=== PATIENT | female | born 1955 | race Caucasian/White ===

== ENCOUNTER 2020-06-04 10:06 | Emergency (ER) | payer MEDICARE, SELFPAY ==
[2020-06-04 10:13] VITALS: BP 167/84; PULSE 97; RESP 17; TEMP 37.2; O2SAT 99; BMI 33.0
--- NOTE | 2020-06-04 10:15 | XR_ITS ---
EXAMINATION: XR HAND, LEFT CLINICAL INFORMATION: Question dislocated left ring finger COMPARISON: None TECHNIQUE: PA, lateral, and oblique views of the left hand. FINDINGS: There is medial dorsal dislocation at the proximal interphalangeal joint of the ring finger. No fracture seen. There is severe osteoarthritis of the first carpometacarpal joint. Mild osteoarthritis seen at the remaining interphalangeal joints. Diffuse osteopenia. Intercarpal joint spaces are maintained. XR/XR hand LT min 3V IMPRESSION: Medial dorsal dislocation at the proximal interphalangeal joint of the ring finger.
--- NOTE | 2020-06-04 11:00 | ED.EXTPRO ---
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 Reports was kneeling down on ground and lost balance, catching self with left hand, unsure if hit hand against wall/got caught between doors. Reports mild pain and tingling now. Denies injury to other area, head trauma, LOC <SAM Navas - Last Filed: 06/04/20 13:25> MD Complaint: extremity pain and joint paint <SAM Navas - Last Filed: 06/04/20 13:25> Related Data Home medications: Previous Rx's Medication Instructions Recorded ibuprofen 600 mg PO Q8H PRN #20 tab 06/04/20 <SAM Navas - Last Filed: 06/04/20 13:25> Allergies/Adverse reactions: Allergies Allergy/AdvReac Type Severity Reaction Status Date / Time No Known Allergies Allergy Verified 06/04/20 10:15 <SAM Navas - Last Filed: 06/04/20 13:25> Review of Systems Review of Systems: Constitutional: No Fever, No Chills Musculoskeletal: + joint pain, No Myalgias, No Joint Swelling Skin: No Skin Lesions, No rash Neuro: No Weakness, + tingling, No Paresthesias <SAM Navas Last Filed: 06/04/20 13:25> Yes all other systems are reviewed and are negative <SAM Navas Last Filed: 06/04/20 13:25> [facility] Past Medical History Attestation statement: The following information was validated with the patient. <SAM Navas - Last Filed: 06/04/20 13:25> Medical History: Medical History (Updated 06/05/20 @ 00:21 by Pepper Romero) High blood pressure <SAM Navas - Last Filed: 06/04/20 13:25> Physical Exam Vital Signs: Vital Signs: Last Vital Signs Temp 98.9 F 06/04/20 10:13 Pulse 97 06/04/20 10:13 Resp 17 06/04/20 10:13 BP 167/84 H 06/04/20 10:13 Pulse Ox 99 06/04/20 10:13 Body Mass Index 33.0 <SAM Navas - Last Filed: 06/04/20 13:25> Vital Signs: Last Vital Signs Temp 98.9 F 06/04/20 10:13 Pulse 97 06/04/20 10:13 Resp 17 06/04/20 10:13 BP 167/84 H 06/04/20 10:13 Pulse Ox 99 06/04/20 10:13 Body Mass Index 33.0 <Elmer Singh MD - Last Filed: 06/07/20 01:56> Const: General: cooperative and healthy appearing <SAM Navas - Last Filed: 06/04/20 13:25> Orientation/consciousness: patient oriented x3 <SAM Navas - Last Filed: 06/04/20 13:25> Limitations: no limitations <SAM Navas - Last Filed: 06/04/20 13:25> HENMT: Head: Yes normal to inspection <SAM Navas - Last Filed: 06/04/20 13:25> Ears: hearing grossly normal bilaterally <SAM Navas - Last Filed: 06/04/20 13:25> General nose exam: Normal external nose present <SAM Navas - Last Filed: 06/04/20 13:25> Face and sinus: Yes normal facial exam <SAM Navas - Last Filed: 06/04/20 13:25> Eyes: General: appearance normal, both eyes and all related structures <SAM Navas - Last Filed: 06/04/20 13:25> EOM: EOMs intact bilaterally <SAM Navas - Last Filed: 06/04/20 13:25> Neck: Neck: Yes normal visual inspection <SAM Navas - Last Filed: 06/04/20 13:25> Resp: Effort & Inspection: normal respiratory effort <SAM Navas - Last Filed: 06/04/20 13:25> Cardio: Rate: regular rate <SAM Navas - Last Filed: 06/04/20 13:25> Peripheral pulses: radial pulses present <SAM Navas - Last Filed: 06/04/20 13:25> Skin: Rashes: no rashes <SAM Navas - Last Filed: 06/04/20 13:25> Wounds: no wounds <SAM Navas - Last Filed: 06/04/20 13:25> Neuro: General: patient oriented x3 <SAM Navas - Last Filed: 06/04/20 13:25> Gait exam (Neuro): Normal gait present <SAM Navas - Last Filed: 06/04/20 13:25> Extrem: Other: Left ring finger with notable deformity of the PIP (medially dislocated) with mild swelling. <SAM Navas - Last Filed: 06/04/20 13:25> Course Course Course Narrative: -x-ray showing medially dorsal dislocation of the proximal interphalangeal joint of the ring finger >> reduction formed at bedside -postreduction films showing ring finger reduced. Also acute minimally displaced oblique fracture through the volar base of the 3rd middle phalanx >> need to get rings off ring finger and fear of vascular compromise > lube and ice failed, ring cutter was used to successfully remove rings -patient was placed in double finger splint in the ED to follow-up with hand surgery <SAM Navas - Last Filed: 06/04/20 13:25> I have discussed the case and management with the VAN <Elmer Singh MD - Last Filed: 06/07/20 01:56> Procedures Orthopedic Joint Reduction Joint #1: Side: left <SAM Navas - Last Filed: 06/04/20 13:25> Joint Reduction Location: finger <SAM Navas - Last Filed: 06/04/20 13:25> Analgesia: none <SAM Navas Last Filed: 06/04/20 13:25> Technique used: traction/counter-traction and direct manipulation <SAM Navas - Last Filed: 06/04/20 13:25> Post-reduction neuro exam: intact and no change <SAM Navas - Last Filed: 06/04/20 13:25> Post-reduction vascular: intact and no change <SAM Navas - Last Filed: 06/04/20 13:25> Post Reduction X-Ray Obtained: Yes <SAM Navas - Last Filed: 06/04/20 13:25> Post Reduction X-Ray Results: reduced <SAM Navas - Last Filed: 06/04/20 13:25> Splint Applied: Yes <SAM Navas Last Filed: 06/04/20 13:25> Patient Tolerated Procedure: well <SAM Navas - Last Filed: 06/04/20 13:25> MDM - Extremity (Nontraumatic) MDM Narrative Medical decision making narrative: Concern for dislocation versus fracture <SAM Navas Last Filed: 06/04/20 13:25> Discharge Plan Discharge Clinical Impression: Dislocation of finger, Fracture of finger <SAM Navas Last Filed: 06/04/20 13:25> Patient Disposition: Home, Self-Care <SAM Navas Last Filed: 06/04/20 13:25> Instructions: Finger Dislocation (ED) <SAM Navas Last Filed: 06/04/20 13:25> Additional Instructions: Your finger was dislocated today in the ED You also have a broken middle finger It was successfully put back into place You need to wear finger splint at all times until you see the claim processing specialist, you may reapply tape at home as needed If finger becomes increasingly swollen, discolored, numb, or your unable to move it return to the ED Take Tylenol and Motrin at home for pain/swelling Ice your finger <SAM Navas Last Filed: 06/04/20 13:25> Prescriptions: New ibuprofen 600 mg tablet 600 mg PO Q8H PRN (Reason: fever or pain) Qty: 20 RF: 0 <SAM Navas - Last Filed: 06/04/20 13:25> Referrals: Zuleima Roper MD [Physician] - 1 week <SAM Navas - Last Filed: 06/04/20 13:25> Interventions: ED Discharge Assessment Last Done: 06/04/20 13:27 <SAM Navas - Last Filed: 06/04/20 13:25> Discharge Date/Time: 06/04/20 13:28 <SAM Navas - Last Filed: 06/04/20 13:25>
--- NOTE | 2020-06-04 11:06 | XR_ITS ---
EXAMINATION: XR HAND, LEFT CLINICAL INFORMATION: Post reduction COMPARISON: None TECHNIQUE: PA and lateral views of the left hand. FINDINGS: Previously seen dislocation at the proximal interphalangeal joint of the ring finger has been reduced. No fracture of the fourth digit seen. However, there is oblique lucency through the volar base of the third middle phalanx (middle finger) consistent with an acute fracture. There is multifocal interphalangeal degenerative arthrosis with joint space narrowing and osteophytosis involving the distal interphalangeal joints of the second through fifth fingers. Severe osteoarthritis of the first carpometacarpal joint are seen. XR/XR hand LT 2V IMPRESSION: Previously seen dislocation at the proximal interphalangeal joint of the ring finger has been reduced. Also seen is an acute minimally displaced oblique fracture through the volar base of the third middle phalanx with extension to the proximal interphalangeal joint. Recommend correlation with point tenderness in this location on the middle finger.
--- NOTE | 2020-06-04 13:03 | PC.NURSE ---
2 RINGS CUT OFF WITH RING CUTTER AND SECOND NURSE TO ASSIST. PT TOLERATED PROCEDURE WELL.
== END 2020-06-04 13:28 | disposition home or self-care (01) ==
PROVIDERS: Emergency Provider Emergency Medicine; PCP Internal Medicine
DX: S62.603A Fracture of unspecified phalanx of left middle finger, initial encounter for closed fracture (principal); M79.642 Pain in left hand; W01.0XXA Fall on same level from slipping, tripping and stumbling without subsequent striking against object, initial encounter; Y93.9 Activity, unspecified; Y92.9 Unspecified place or not applicable; Y99.9 Unspecified external cause status
CPT/HCPCS: 73120; 73130; 99283

== ENCOUNTER → 2020-06-12 09:06 | Outpatient (BNVA) | payer MEDICARE, SELFPAY | PROVIDERS: Visit Provider Orthopaedic Surgery | DX: Z76.89 Persons encountering health services in other specified circumstances (principal) | CPT/HCPCS: 99202 ==

== ENCOUNTER 2023-06-29 18:14 | Emergency (ER) | payer MEDICARE, SELFPAY ==
[2023-06-29 18:24] VITALS: BP 126/54; PULSE 93; RESP 14; TEMP 36.4; O2SAT 98; BMI 33.2
--- NOTE | 2023-06-29 18:27 | ED.GENADULT ---
HPI - General Adult General Chief complaint: Head Injury Stated complaint: BANGED HEAD ON CABINET DOOR Time Seen by Provider: 06/29/23 22:06 Source: patient Mode of arrival: ambulatory Limitations: no limitations History of Present Illness HPI narrative: Patient is a 68-year-old who presents emergency department for evaluation of a laceration to the right parietal region of her head. She states that she was standing up on a step stool when she accidentally struck her head on the corner of a cabinet above her. There was no loss of consciousness. She denies any pain. No active bleeding. Denies use of anticoagulants. Denies dizziness, lightheadedness, neck pain, numbness or tingling of the extremities. Unaware of the date of her last tetanus vaccination. Related Data Home Medications Medication Instructions Recorded Confirmed lisinopril 10 1 tab PO DAILY 06/12/20 mg-hydrochlorothiazide 12.5 mg tablet metformin 500 mg tablet 500 mg PO DAILY 06/12/20 Previous Rx's Medication Instructions Recorded ibuprofen 600 mg tablet 600 mg PO Q8H PRN fever or pain 06/04/20 #20 tabs Allergies Allergy/AdvReac Type Severity Reaction Status Date / Time No Known Allergies Allergy Verified 12/06/20 15:15 Review of Systems Review of Systems: Yes all other systems are reviewed and are negative PMFSH Past Medical History Attestation statement: The following information was validated with the patient. Source: old records reviewed Medical History Prediabetes High blood pressure Surgical History History of repair of rotator cuff Previous back surgery History of appendectomy Physical Exam ED Vital Signs: Vital Signs - 24 hr 06/29/23 18:24 Temperature 97.6 F Pulse Rate 93 Respiratory Rate 14 Blood Pressure 126/54 L Pulse Oximetry 98 Oxygen Delivery Method Room Air BMI result Body Mass Index 33.2 Appearance: Alert.?Oriented to person, place and time. No acute distress.?Normal affect. Head: Normocephalic. 5 cm linear laceration to the right parietal scalp Eyes: Pupils equal, round and reactive to light.? EOMI. No nystagmus. ENT: Pharynx normal.??Dentition normal. Neck: Normal inspection.? Neck supple.??Full range of motion. No midline cervical spine tenderness, step-offs, deformities. CVS: Heart sounds normal. Normal heart rate and rhythm.? Pulses normal.?? Respiratory: No respiratory distress.? Lung sounds clear to auscultation bilaterally??? Skin: Skin warm and dry.? Normal skin color.? Laceration as noted above Extremities: No lower extremity edema.? Neuro: Moves all extremities spontaneously. Sensation intact bilaterally. CN II-XII intact. No focal neuro deficits. Ambulates with normal steady gait. Course Course Course Narrative: This is a rapid medical exam: Additional HPI, ROS, PE not included below will be deferred to primary provider. Patient is a 68-year-old female presenting to the ED with complaint of laceration to top of head. STates she stood up and hit head on cabinet above her. Denies loss of consciousness, denies headache. Bleeding controlled in triage, laceration noted. Unsure last tdap. Plan: tdap, will need kaylin Procedures Laceration Laceration 1: Site: scalp Side (If applicable): right Size (cm): 5 Description: linear Depth: simple, single layer Pre-repair: irrigated extensively and deep structures intact Skin layer closed with: other (5 kaylin) Medical Decision Making Medical Decision Making MDM Narrative: Patient is a 68 female who presents emergency department for evaluation of a laceration to the scalp as per HPI. She has no focal neurological deficits upon examination. She is not anticoagulated. Low mechanism injury, low suspicion for ICH/SDH, no focal neurological deficits upon examination, would defer head CT at this time. She is not anticoagulated. There is no profuse active bleeding. Area was cleansed with saline. Repaired with 6 kaylin patient tolerated procedure well. Advised removal in 7-10 days. Discussed worrisome signs and symptoms that would warrant re-evaluation emergency department. All questions answered. Stable for discharge. Differential Diagnosis Differential Diagnoses: The differential diagnosis associated with the presentation includes (As noted above) Admission/Observation Consideration of admission/observation: Escalation of care including admission/observation considered (As noted above) Independent Historian Clinical information obtained from an independent historian. History obtained from or confirmed by: Spouse (Present who confirms history) External Record Review External record reviewed: Outpatient record Tests considered The following testing was considered but not selected: As noted above Prescription Management I considered prescription management with: Pain Medication (Acetaminophen) Discharge Plan Discharge Clinical Impression: Acute head injury without loss of consciousness, Laceration of scalp Patient Disposition: Home, Self-Care Instructions: Head Injury (ED), Laceration (ED) Additional Instructions: You can take ibuprofen 200 mg, 3 tablets (600mg) every 6-8 hours as needed for pain, in addition to Tylenol 500 mg, 2 tablets (1,000mg) every 4-6 hours as needed for pain, but not to exceed 3 doses daily (3,000mg).? [place] will need to be removed in 7-10 days. You may see with your primary care provider regarding removal and/or return back to the emergency department for removal. Return back to emergency department any new or worsening symptoms or concerns. Prescriptions: No Action ibuprofen 600 mg tablet 600 mg PO Q8H PRN (Reason: fever or pain) Qty: 20 0RF Referrals: Terrence Almanza MD [Primary Care Provider] -
[2023-06-29 23:00] VITALS: BP 120/61; PULSE 79; RESP 18; O2SAT 97
[2023-06-29] MEDS: Diphth,Pertus(ACell),Tet Adult 0.5 ML SYRINGE IM (23:02)
== END 2023-06-29 23:10 | disposition home or self-care (01) ==
PROVIDERS: Emergency Provider Student in an Organized Health Care Education/Training Program; PCP Internal Medicine
DX: S00.01XA Abrasion of scalp, initial encounter (principal); S09.90XA Unspecified injury of head, initial encounter; Y29.XXXA Contact with blunt object, undetermined intent, initial encounter; Y93.9 Activity, unspecified; Y92.9 Unspecified place or not applicable; Y99.9 Unspecified external cause status; Z23 Encounter for immunization
CPT/HCPCS: 12002; 90471; 90715; 99284

== ENCOUNTER 2025-03-20 14:29 | Outpatient (AMB) | payer MEDICARE, SELFPAY ==
--- NOTE | 2025-03-20 14:36 | MHC.OFFWIV ---
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 notes 11 pound wt loss in 1 week. Allergies No Known Allergies Allergy (Verified 03/20/25 14:38) Do you need a note to return to daycare/school/sports/work: No HPI HPI Comments History of Present Illness Details This is a 69-year-old female with a past medical history of [id number] diabetes and hypertension presenting for evaluation of feeling off for the past 2 days. Patient states she recently tested positive for ?an autoimmune disease? and started a new diet 1 week ago that consists of increase protein and vegetables and no carbohydrates. Patient reports an 11 lb weight loss since starting this diet 1 week ago. Patient states that she is urinating more frequently in large amounts since starting her diet. Patient denies taking any new medications and she denies having any fevers, chills, abdominal pain, dysuria, lightheadedness, chest pain or shortness for breath. Patient states that she comes to the walk-in today because she was feeling shaky and anxious. Upon intake the patient was noted to be tachycardic at 120bp with a blood pressure of 102/70. [facility] Medical History Prediabetes High blood pressure Surgical History History of repair of rotator cuff Previous back surgery History of appendectomy Social History (System 12/06/20 @ 15:15 by Tracey Kate) Alcohol intake: never Review of Systems Const All systems reviewed & are unremarkable except as noted in HPI and below Denies body aches, Denies chills, Denies fatigue, Denies fever(s), Denies frequent falls, Denies headache(s), Reports weakness and Reports weight loss Eyes Reports no additional complaints ENT Reports no additional complaints, Denies vertigo, Denies dizziness and Denies headache(s) Card Reports no additional complaints, Denies chest pain and Denies syncope Resp Reports no additional complaints GI Reports no additional complaints Reports nocturia, Denies dysuria, Denies flank pain, Denies urinary incontinence and Reports urinary urgency Musc Reports no additional complaints Skin/Breast Reports system reviewed and no additional complaints, except as documented Neuro Reports no additional complaints, Denies confusion, Denies vertigo, Denies dizziness, Denies syncope, Denies frequent falls, Denies headache(s) and Reports weakness Psych Reports no additional complaints and Denies confusion Endo Reports no additional complaints and Denies fatigue Physical Exam Vital Signs: Last Vital Signs Temp 97.9 F 03/20/25 14:37 Pulse 120 H 03/20/25 14:37 BP 102/70 03/20/25 14:37 Pulse Ox 96 03/20/25 14:37 Oxygen Delivery Method Room Air 03/20/25 14:37 BMI result Body Mass Index 30.4 Repeat heart rate is 104, sitting blood pressure 118/76, standing blood pressure 102/72, blood glucose 120 Const General: cooperative, healthy appearing, comfortable, no acute distress, well developed, alert, awake and Physically active; No acute distress, confusion, ill appearing, lethargic or tired appearing Nutritional Appearance: well nourished Orientation/consciousness: patient oriented x3, No confusion and No lethargic Limitations: no limitations Resp Effort & Inspection: normal respiratory effort, able to speak in complete sentences, not labored, no nasal flaring and not tachypneic Auscultation: clear to auscultation bilaterally Cardio Rate: tachycardic Rhythm: regular rhythm Heart sounds: S1 normal heart sound present and S2 normal heart sound present Peripheral pulses: radial pulses present on the right 2+ General: Yes Bimanual renal exam normal bilaterally, Yes bladder normal to palpation and Yes no CVA tenderness Bimanual exam- vagina & uterus: bladder normal to palpation Back/Spine/Pelvis Back: no CVA tenderness Skin General skin exam: no rashes or lesions noted Neuro General: patient oriented x3, CN's II-XI intact bilaterally and No confusion Cognition (Neuro): normal cognition Gait exam (Neuro): Normal gait present Psych Appearance: grossly normal Mental Status: mental status grossly normal Insight: Good insight present (Psych) Judgement: Good judgement present (Psych) Results AMB Random Glucose (hemocue) AMB Random Glucose (hemocue) 120 mg/dL Last Edit by Adriana Fletcher MA on 03/20/25 15:33 Results Reviewed Results Reviewed: Blood glucose 120; patient is not dizzy or unsteady when checking orthostatic blood pressure Assessment & Plan Assessment & Plan (1) Tachycardia: Comment: Patient is tachycardic with a rate of 104 beats per minute. Rhythm is regular. Patient is in no acute distress and is not tachypneic or hypoxic. Patient states she is urinating significantly more frequently but denies any hematuria or dysuria. Patient's systolic blood pressure drops 16 points from sitting to standing but she is asymptomatic. Overall, patient is well-appearing and her is present throughout. Code(s): R00.0 - Tachycardia, unspecified Plan: Patient will increase her water intake daily to at least five 24 ounce bottles of water daily; she will check her blood pressure twice daily and record the value and the time of day. She will call her PCP tomorrow to update him (Dr. Almanza) of her current status. Patient denies dysuria and therefore a urinalysis is not collected at this time. Patient and her are in agreement with this plan of care. Orders: Orders AMB Random Glucose (hemocue) Today Z13.9 - Encounter for screening, unspecified Coding Level of Care Code New Pt Level 4 (00247) Diagnoses Tachycardia R00.0 Time Spent (min) 25
[2025-03-20 14:37] VITALS: BP 102/70; PULSE 120; TEMP 36.6; O2SAT 96; BMI 30.4
--- OUTSIDE RECORDS SUMMARY | 2025-03-20 15:28 | XMS_ITS | Encounter Summary ---
Author Organization [facility] Address [address] [place] [address] Phone Care Team Providers Care Third Officer Name Role Phone Terrence Almanza MD Primary Care Provider Terrence Almanza MD Unavailable [phone] Tawana Li ROPE WALKER Unavailable [phone] Terrence Almanza MD Primary Care Provider [phone] Terrence Almanza MD Unavailable [phone] Terrence Almanza MD Primary Care Provider [phone] Archie Dent MD Unavailable Terrence Almanza MD Unavailable [phone] Amie Hurt RN Unavailable [phone] Encounter Details Date Type Department Care Team (Latest Contact Info) Description 05/27/2017 Transcribe Orders [facility] [address] [place] [address] Terrence Almanza MD [address] [place], [place] [phone] Type 2 diabetes mellitus without complication, unspecified intermodal customer service insulin use status (Primary Dx) Social History Tobacco Use Types Packs/Day Years Used Date Smoking Tobacco: Never Assessed Comments Unknown Sex and Gender Information Value Date Recorded Sex Assigned at Female 10/22/2020 1:39 PM EDT Legal Sex Female 9:56 PM EDT Gender Identity Female 10/22/2020 1:39 PM EDT Sexual Orientation Straight 10/22/2020 1: 39 PM EDT documented as of this encounter Plan of Treatment Upcoming Encounters Date Type Department Care Team (Late st Contact Info) Description 03/20/2025 4:45 PM EDT Office Visit [facility] Internal Medicine [address] [place] [address] Bairon Nails MD [address] [place] [address] 04/30/2025 11:30 AM EDT Office Visit [facility] Internal Medicine [address] [place], [place] [phone] Terrence Amlanza MD [address] [place] [address] 01/04/2026 8:30 AM EDT Office Visit [facility] Internal Medicine [address] [place], [place] [phone] Terrence Almanza MD [address] [place], [place] [phone] documented as of this encounter Results * (ABNORMAL) Comprehensive metabolic panel (05/27/2017 8:44 PM EDT) SODIUM 140 133 - 146 mmol/L [facility] POTASSIUM 5.4(H) 3.3 - 5.1 mmol/L [facility] CHLORIDE 101 96 - 108 mmol/L [facility] CO2 29 21 - 35 mmol/L [facility] BUN 15 6 - 19 mg/dL [facility] CREATININE 0.60 0.5 - 1.5 mg/dL [facility] GLUCOSE 91 70 - 99 mg/dL [facility] ALBUMIN 4.6 3.9 - 4.8 g/dL [facility] TOTAL PROTEIN 6.9 6.5 - 8.0 g/dL [facility] CALCIUM 10.2 8.4 - 10.3 mg/dL [facility] ALKALINE PHOSPHATASE 62 39 - 117 U/L [facility] TOTAL BILIRUBIN 0.5 0 - 1.2 mg/dL [facility] AST 18 0 - 37 U/L [facility] ALT 24 0 - 40 U/L [facility] GLOBULIN 2.3 1 - 4.8 g/dL [facility] EGFR >60 >60 mL/min/1.7 3m2 [facility] Comment:Abnormal if <60. If patient is -Northern Irish, multiply the result by 1.21. ANION GAP 15 10 - 20 mmol/L [facility] Blood 05/27/2017 8:44 PM EDT 05/27/2017 9:03 PM EDT us Terrence Almanza MD LAB BLOOD ORDERABLES Final Re sult Performing Organization Address City/State/[facility] Co de Phone Number [address] [address] * CBC (05/27/2017 8:44 PM EDT) WBC 5.77 3.40 - 11.20 K/uL [facility] RBC 4.71 3.80 - 4.80 M/uL [facility] HGB 14.1 12.0 - 15.0 g/dL [facility] HCT 43.3 36.0 - 46.0 % [facility] PLT 273 130 - 400 K/uL [facility] MCV 91.9 79.0 - 98.0 [facility] MCH 29.9 27.0 - 34.8 pg [facility] MCHC 32.6 31.5 - 36.0 g/dL [facility] RDW 13.7 10.8 - 14.6 % [facility] MPV 9.9 9.4 - 12.4 [facility] NRBC 0.00 /100 WBCs [facility] ABSOLUTE NRBC 0.00 K/uL [facility] Blood 05/27/2017 8:44 PM EDT 05/27/2017 9:03 PM EDT us Terrence Almanza MD LAB BLOOD ORDERABLES Final Re sult Performing Organization Address [facility]/ZIP Co de Phone Number [address] [address] * Sedimentation rate (ESR) (05/27/2017 8:44 PM EDT) ESR 3 0 - 30 mm/h [facility] Blood 05/27/2017 8:44 PM EDT 05/27/2017 9:03 PM EDT us Terrence Almanza MD LAB BLOOD ORDERABLES Final Re sult Performing Organization Address [facility] Co de Phone Number [address] [address] * C-Reactive Protein (05/27/2017 8:44 PM EDT) C REACTIVE PROTEIN 0.3 0 - 0.5 mg/L [facility] Blood 05/27/2017 8:44 PM EDT 05/27/2017 9:03 PM EDT us Terrence Almanza MD LAB BLOOD ORDERABLES Final Re sult Performing Organization Address [facility] Co de Phone Number [address] [address] * (ABNORMAL) Lipid panel (05/27/2017 8:44 PM EDT) HDL 67 mg/dL [facility] Comment: Interpretation: Risk Level Females Decreased >55mg/dL Average 50-55 mg/dL Increased <50 mg/dL CHOLESTEROL 247(H) 0 - 240 mg/dL [facility] TRIGLYCERIDES 128 30 - 160 mg/dL [facility] LDL 154(H) 50 - 129 mg/dL [facility] Comment: LDL levels in terms of risk for coronary heart disease: <100 mg/dL: Optimal 100-129 mg/dL: Near or above optimal 130-159 mg/dL: Borderline high 160-189 mg/dL: High >190 mg/dL: Very High CARDIAC RISK RATIO 3.7 3.3 - 4.4 [facility] Blood 05/27/2017 8:44 PM EDT 05/27/2017 9:03 PM EDT us Terrence Almanza MD LAB BLOOD ORDERABLES Final Re sult [address] [address] documented in this encounter Visit Diagnoses Diagnosis Type 2 diabetes mellitus without complication, unspecified retirement insulin use status- Primary documented in this encounter Additional Health Concerns Assessment Noted Time PHQ-2 Depression Total Score: 0 05/27/20 17 12:11 PM EDT documented as of this encounter Care Teams Third Officer Relationship Specialty Start Date End Date Terrence Almanza MD [address] [place] [address] PCP - General 05/11/17 06/08/17 Terrence Almanza MD [address] [place] [address] PCP - General Internal Medicine 06/09/17 12/11/18 Terrence Almanza MD [address] [place] [address] PCP - General Internal Medicine 12/12/18 Terrence Almanza MD [address] [place] [address] Historical LMR Provider 05/16/17 Tawana Li ROPE WALKER [address] [place] [address] 6 [place] [address] Historical LMR Provider 05/16/17 08/02/21 Terrence Almanza MD [address] [place] [address] Insurance Assigned Provider 11/02/20 08/01/22 Archie Dent MD [address] [place] [address] [place] [address] Ophthalmology 08/08/19 Terrence Almanza MD [address] [place] [phone] Insurance Assigned Provider 10/30/23 Amie Hurt, RN [address] [place] [address] [email or web address] 02/21/24 03/15/24 documented as of this encounter Additional Source Comments The information contained in this document represents components of the legal health record. It is not the complete legal health record.[facility]
--- OUTSIDE RECORDS SUMMARY | 2025-03-20 15:29 | XMS_ITS | Encounter Summary ---
Author Organization [facility] Address [facility] [place] [facility] [address] [place] [address] Phone Care Team Providers Care Sleeve Setter Name Role Phone Terrence Almanza MD Unavailable [phone] Terrence Almanza MD Primary Care Provider [phone] Archie Dent MD Unavailable [phone] Terrence Almanza MD Unavailable [phone] Reason for Visit * Reason Onset Date Comments concerns with vision 03/20/2025 Encounter Details Date Type Department Care Team (Late st Contact Info) Description 03/20/2025 Telephone [facility] Internal Medicine [address] [place], [place] [phone] Terrence Almanza MD [address] [place] [address] [email or web address] concerns with vision Social History Tobacco Use Types Packs/Day Years Used Date Smoking Tobacco: Former Cigarettes 0 5 1 978 - 1982 Smokeless Tobacco: Never Comments:social smoker while drinking Alcohol Use Standard Drinks/Week Comments Yes 0 (1 standard drink = 0.6 oz pure alcohol) 2 drinks, once every 2-3 months only during special occasions;10 drinks per year Child or Family Care Answer Date Record ed Do you have problems with on e of the following making it difficult for you to work, study, or receive health care? No 01/05/2025 Education Answer Date Recorded Are you interested in more education? Not on addi e 11/20/2022 Are you concerned about learning? Not on file 11/20/2022 No 11/20/2022 No 11/20/2022 Food Answer Date Recorded Within the past 6 months we worried whether our food would run out before we got money to buy more. Never True 01/05/2025 Within the past 6 months the food we bought just didn't last and we didn't have enough money to get more. Never True Residential Stability Answer Date Recor ded What is your housing situation today? I have stefan sing 01/05/2025 How many times have you move d in the past 12 months? Zero (I did not move) 01/05/2025 Paying for Meds Answer Date Recorded Do you have trouble paying for medicines? No 01/05/2025 Paying Utility Bills Answer Date Record ed Do you have trouble paying your heating or elect ricity bill? No 01/05/2025 Transportation Answer Date Recorded Has the lack of transportati on kept you from medical appointments or from getting medications? No 01/05/2025 Digital Access Answer Date Recorded No 01/05/2025 Yes 01/05/2025 Do you have reliable internet access at home? Ye s 01/05/2025 Do you have a device (e.g., phone, tablet, computer) with a working camera? Yes 01/05/2025 Intimate Partner Violence Answer Date R ecorded Denied Basic Needs Not on file 01/05/2025 In the past 12 months have y ou been in a relationship with a person who hurts, threatens, or tries to control you? No 01/05/2025 Worried food would run out Not on file 01/05 In the past 12 months have y ou been in a relationship with a person who hurts, threatens, or tries to control you? No 01/05/2025 Comments No Sex and Gender Information Value Date Recorded Sex Assigned at Female 10/22/2020 1:39 PM EDT Legal Sex Female 9:56 PM EDT Gender Identity Female 10/22/2020 1:39 PM EDT Sexual Orientation Straight 10/22/2020 1: 39 PM EDT documented as of this encounter Progress Notes * Jillian Mendiola RN - 03/20/2025 3:02 PM EDT Noted * Lima Weaver - 03/20/2025 2:53 PM EDT Received call from patients spouse Keagan reports he will not be attending the appointment for today.Reports he brought her to the [facility] in [place] office now to be seen. * Jillian Mendiola RN - 03/20/2025 1:33 PM EDT Spoke to Latonia and rescheduled to 4:[address] Nails. * Jillian Mendiola RN - 03/20/2025 1:17 PM EDT Spoke to Latonia johnson. Scheduled with Jared tomorrow at 4 pm. Will call her back if there is a cancellation this afternoon. * Jillian Mendiola RN - 03/20/2025 1:13 PM EDT Images from the original note were not included. Ernie Appiah PA-C g P[facility] Amanda RnJust now (1:12 PM) JM I would advise her to have some carbohydrates as I feel as though is that her sugar is most likely dropping which is causing some of the symptoms. She should be seen if she develops further symptoms she should go to the emergency department for further evaluation. I would recommend her having a sick visit and being seen by Jared at 4:00 * Jillian Mendiola RN - 03/20/2025 1:05 PM EDT Images from the original note were not included. Ernie Appiah PA-C [facility] Amanda Rn1 minute ago (1:03 PM) JM She should really be seen and not just have labs completed so then that way we can do a glucose level in the office. * Jillian Mendiola RN - 03/20/2025 12:54 PM EDT Spoke to Latonia and she states this started about an hour ago. She had a shake this morning with almond butter, milk and strawberries. States she is on a detox regimen due to an autoimmune disorder. She has lost 11 pounds in the past week and started this diet about that time. States she is eating fruits veggies and grass fed meat. She is diabetic but does not have a glucometer. She takes metformin. She is concerned that her blood sugar may be off due to her new diet, weight loss and metformin.Can labs be ordered so she can come to the lab today? States the weird feeling has passed and she denies and visual problems. * Lima Weaver - 03/20/2025 12:49 PM EDT Received a call from the patient reporting that she does not feel right. She states she is not currently shaky but feels as though she could become shaky. She also reports that her eyes ???just don???t feel right,?? although she is able to see clearly. Patient did not provide further detail but expressed concern about these symptoms. She reports she is worried it could be her blood sugar. She can be reached at [phone]. documented in this encounter Plan of Treatment Upcoming Encounters Date Type Department Care Team (Late st Contact Info) Description 03/20/2025 4:45 PM EDT Office Visit [facility] Internal Medicine [address] [place] [address] Bairon Nails MD [address] [place], [place] [phone] 04/30/2025 11:30 AM EDT Office Visit [facility] Internal Medicine [address] [place] [address] Terrence Almanza MD [address] [place] [phone] 01/04/2026 8:30 AM EDT Office Visit [facility] Internal Medicine [address] [place] [address] Terrence Almanza MD [address] [place] [address] [phone] documented as of this encounter Visit Diagnoses Not on filedocumented in this encounter Additional Health Concerns Assessment Noted Time PHQ-9 Depression Total Score: 6 11/28/19 25 8:29 PM EDT PHQ-2 Depression Total Score: 0 01/06/20 25 11:48 AM EDT documented as of this encounter Care Teams Sleeve Setter Relationship Specialty Start Date End Date Terrence Almanza MD [address] [place] [address] [id number] PCP - General Internal Medicine 12/12/18 Terrence Almanza MD [address] [place] [address] [phone] [email or web address] Historical LMR Provider 05/16/17 Archie Dent MD [address] [place] [address] [place] [address] Ophthalmology 08/08/19 Terrence Almanza MD [address] [place] [address] [email or web address] Insurance Assigned Provider 10/30/23 documented as of this encounter Additional Source Comments The information contained in this document represents components of the legal health record. It is not the complete legal health record.[facility]
--- OUTSIDE RECORDS SUMMARY | 2025-03-20 15:29 | XMS_ITS | Clinical Summary ---
Author Organization [facility] Address [address] [place] [address] Care Team Providers Care Head Nurse Name Role Phone Terrence Almanza MD Primary Care Provider [phone] Parrish Mason MD Unavailable [phone] Allergies Active Allergy Reactions Criticality Noted Date Comments Oxycodone-Ibuprofen Other (See Comments) 2021 Does not work for her. Prefers dilaudid. Medications lisinopril-hydr ochlorothiazide (PRINZIDE,ZESTO RETIC) 20-25 MG per tablet Take 1 tablet by mouth every morning. Active metFORMIN (GLUCOPHAGE) 500 MG tablet Take 1,000 mg by mouth nightly. Active OMEprazole (PriLOSEC) 20 MG capsule Take 20 mg by mouth nightly. Active acetaminophen (TYLENOL) 500 MG tablet Take 500 mg by mouth 4 times daily (every 6 hours) as needed for mild pain. Also uses Tylenol product that contains caffeine Active coenzyme Q10 (CO Q 10) 100 MG capsule Take 100 mg by mouth every morning. Active magnesium oxide 400 (240 Mg) MG Tab tablet Take 400 mg by mouth every morning. Take 2 hours apart from other medications; take with food Active Xarelto 10 MG tablet Take 10 mg by mouth daily. 03/11/2022 Active HYDROmorphone (DILAUDID) 2 MG tablet Take 2 mg by mouth Every 4 (four) to 6 (six) hours as needed. For pain 03/10/2022 Active methocarbamol (ROBAXIN) 750 MG tablet TAKE ONE TABLET BY MOUTH TWICE A DAY TAKE AFTER SURGERY 03/10/2022 Active Active Problems Problem Noted Date Diagnosed Date Ankle arthritis 03/16/2022 Family History Medical History Relation Name Comments No Known Problems Brother 1 No Known Problems Brother 2 Lung cancer Father Alzheimer's disease Mother Deep vein thrombosis Mother Dementia Mother Cancer Sister uterine Deep vein thrombosis Sister Relation Name Status Comments Brother 1 Alive Brother 2 Alive Father Mother Alive Sister Alive Social History Tobacco Use Types Packs/Day Years Used Date Smoking Tobacco: Former Cigarettes Q uit: 1974 Smokeless Tobacco: Never Comments:social cigarette sm oker in teens Alcohol Use Standard Drinks/Week Comments Yes 0 (1 standard drink = 0.6 oz pur e alcohol) rarely AUDIT-C Answer Date Recorded Q1: How often do you have a drink containing alc ohol? Monthly or less 02/12/2022 Q2: How many drinks containi ng alcohol do you have on a typical day when you are drinking? 1 or 2 02/12/2022 Q3: How often do you have si x or more drinks on one occasion? Never 02/12/2022 Comments Unknown Sex and Gender Information Value Date Recorded Sex Assigned at Not on file Legal Sex Female 10:22 AM EDT Gender Identity Not on file Sexual Orientation Not on file Last Filed Vital Signs Vital Sign Reading Time Taken Comments Blood Pressure 130/61 03/17/2022 9:45 AM EDT Pulse 98 03/17/2022 9:45 AM EDT Temperature 37 C (98.6 F) 03/17/2022 9:45 AM EDT Respiratory Rate 18 03/17/2022 9:45 AM EDT Oxygen Saturation 96% 03/17/2022 9:45 AM EDT Inhaled Oxygen Concentration - - Weight 83.5 kg (184 lb) 02/25/2022 12:18 PM EDT Height 154.9 cm (5' 1 ) 02/25/2022 12:18 PM EDT Body Mass Index 34.77 02/25/2022 12:18 PM EDT Plan of Treatment Health Maintenance Due Date Last Done Comments Hepatitis C Virus Screening 1954 DTaP/Tdap/Td Vaccines (1 - Tdap) 1973 Mammogram 1994 Colonoscopy 1999 Pneumococcal Vaccines 50+ (1 of 1 - PCV) 2004 Zoster (Shingles) Vaccine (1 of 2) 2004 DXA Bone Density (Females,Ages 65 and older) 2019 COVID-19 Vaccine ( season) 2024 09/24/2020, 09/03/2020 Influenza Vaccine 02/23/2025 05/25/2023, , 05/19/2021, Additional history exists RSV Vaccine 60 years and older and Patients (1 - 1-dose 75+ series) 2029 Hepatitis B Vaccines Aged Out No long er eligible based on patient's age to complete this topic Medical Devices Implanted Type Area Surface Water Technician Device Identifier Shelf Expiration Date Model / Serial / Lot Medshape Dynaclip Bone Fixation System [id number] Implanted:Qty: 1 on 03/16/2022 by Parrish Mason MD at [facility] Clip Right: Foot [employer] DIV [employer] 05/25/2023 [id number] / / [id number] Vis Compressive Screw Short Thread 7mm 75mm Implanted:Qty: 1 on 03/16/2022 by Parrish Mason MD at [facility] Screw Right: Foot [employer] 06/25/2025 [id number] / / [id number] Vis Compressive Screw 5mm, 50mm Implanted:Qty: 1 on 03/16/2022 by Parrish Mason MD at [facility] Screw Right: Foot [employer] 04/25/2025 [id number] / / [id number] Vis Compressive Screw 5mm, 38mm Implanted:Qty: 1 on 03/16/2022 by Parrish Mason MD at [facility] Screw Right: Foot [employer] 10/24/2025 [id number] / / [id number] 201.816 Screw Bone Nitish 16mm Ss 2mm 3.5mm Slftp Crucif Nonst Mini - [id number] Implanted:Qty: 1 on 03/16/2022 by Parrish Mason MD at [facility] Screw Right: Foot [employer] - A CHERYL AN 201.816 / / [id number] Filler Bone Void 5cc Dbx Algrf Putty Frzdr - [id number] Implanted:Qty: 1 on 03/16/2022 by Parrish Mason MD at [facility] Void Filler Right: Foot [employer] 11/22/2023 [id number] / [id number] / Explanted Type Area Surface Water Technician Device Identifier Shelf Expiration Date Model / Serial / Lot [id number] Wire Fixation .045in 6in Krsh Ss 2 Troc Pnt [facility] [id number] Explanted:Qty: 1 on 03/16/2022 at [facility] Wire Right: Foot [employer] 12/02/2025 [id number] / / [id number] Description:USED A SUPPLY Insurance MEDICARE PART A & B [facility] MEDICARE PART A & B [employer] COMPREHENSIVE MEDICARE PART A & B [employer] [facility] Advance Directives * Full Code (Latest Code Status on File) Date Activated Date Inactivated Comments 03/16/2022 6:35 PM * Full Code Date Activated Date Inactivated Comments 03/16/2022 11:49 AM 03/16/2022 6:35 PM Care Teams Head Nurse Relationship Specialty Start Date End Date Terrence Almanza MD [address] [place] [phone] PCP - General Internal Medicine 02/03/22 Parrish Mason MD [address] [place] [address] Surgery, Orthopedic 02/13/22
--- OUTSIDE RECORDS SUMMARY | 2025-03-20 15:29 | XMS_ITS ---
Author Name [facility] Organization Unknown History of Medication Use Medication Directions Dispensed Refills Start Date End Date Stat us Xarelto 10 MG tablet Take 10 mg by mouth daily. 03/11/2022 active coenzyme Q10 (CO Q 10) 100 MG capsule Take 100 mg by mouth every morning. active Allergies Allergen Reaction Severity Comment Documented Date Source Statu s OXYCODONE-IBUPRO FEN OTHER (SEE COMMENTS) Does not work for her. Prefers dilaudid. 02/25/2022 [facility] active Problems Problem Status Onset Date Problem Type Date of Resolution Source Ankle arthritis active 2022-03-16 ProblemAct [facility] Osteoarthritis of ankle and foot, right [facility] Encounter Type Encounter Reason Primary Diagnosis Location Date Ambulatory [facility] 12/28/2023 Ambulatory Primary osteoarthritis, right ankle and foot Primary osteoarthritis, right ankle and foot [facility] 12/28/2023 Ambulatory Primary osteoarthritis, unspecified ankle and foot [facility] 03/16/2022 Ambulatory Contact with and (suspected) exposure to covid-19 [facility] 03/14/2022 Ambulatory Encounter for ot her preprocedural examination [facility] 02/25/2022 Ambulatory Contact with and (suspected) exposure to covid-19 [facility] 02/17/2022 Ambulatory Encounter for preprocedural laboratory examination [facility] 02/16/2022 Care Team Organization Name Specialty Phone Email Start Date End Da te [facility] 03/16/2022 10/12/19 [facility] 02/16/2022 03/16/20
--- OUTSIDE RECORDS SUMMARY | 2025-03-20 15:29 | XMS_ITS | Encounter Summary ---
Author Organization [facility] Address [facility] [address] [place] [phone] Phone Care Team Providers Care Opening Machine Cleaner Name Role Phone Terrence Almanza MD Unavailable [phone] Terrence Almanza MD Primary Care Provider [phone] Archie Dent MD Unavailable [phone] Terrence Almanza MD Unavailable [phone] Reason for Visit * Reason Comments Med Change Request Encounter Details Date Type Department Care Team (Late st Contact Info) Description 03/19/2025 Refzbigniew Barajas [facility] [address] [place], [place] [phone] Terrence Almanza MD [address] [place] [address] [email or web address] Med Change Request Social History Tobacco Use Types Packs/Day Years Used Date Smoking Tobacco: Former Cigarettes 0 5 1 978 - 1983 Smokeless Tobacco: Never Comments:social smoker while drinking [...] Description 03/20/2025 4:45 PM EDT Office Visit [facility] Internal Medicine [address], [place] [phone] Bairon Nails MD [address] [place] [address] 04/30/2025 11:30 AM EDT Office Visit [facility] Internal Medicine [address], [place] [phone] Terrence Almanza MD [address] [place] [address] [phone] 01/04/2026 8:30 AM EDT Office Visit [facility] Internal Medicine [address], [place] [phone] Terrence Almanza MD [address] [place] [address] [phone] documented as of this encounter Visit Diagnoses Diagnosis Type 2 diabetes mellitus without complication, without long-term current use of insulin documented in this encounter Additional Health Concerns Assessment Noted Time PHQ-9 Depression Total Score: 6 11/28/19 25 8:29 PM EDT PHQ-2 Depression Total Score: 0 01/06/20 25 11:48 AM EDT documented as of this encounter Care Teams Opening Machine Cleaner Relationship Specialty Start Date End Date Terrence Almanza MD [address] [place] [address] [phone] PCP - General Internal Medicine 12/12/18 Terrence Almanza MD [address] [place] [address] [phone] Historical LMR Provider 05/16/17 Archie Dent MD [address] [place] [address] [place] [address] Ophthalmology 08/08/19 Terrence Almanza MD [address] [place] [id number] [email or web address] Insurance Assigned Provider 10/30/23 documented as of this encounter Additional Source Comments The information contained in this document represents components of the legal health record. It is not the complete legal health record.[facility]
--- OUTSIDE RECORDS SUMMARY | 2025-03-20 15:29 | XMS_ITS | Clinical Summary ---
Author Organization [facility] Address [address] [employer] [facility] [address] [place] [address] Phone Care Team Providers Care Clinical Appeals Auditor Name Role Phone Terrence Almanza MD Unavailable [phone] Terrence Almanza MD Primary Care Provider [phone] Archie Dent MD Unavailable Terrence Almanza MD Unavailable [phone] Allergies Active Allergy Reactions Criticality Noted Date Comments Ibuprofen-Oxycodone 02/25/2022 Other reaction(s): Other (See Comments) Does not work for her. Prefers dilaudid. Medications coenzyme [id number] 100-5 mg-unit Cap Take 2 capsules by mouth daily. Has fish oil Active esomeprazole (NEXIUM) 20 MG capsule Take 1 capsule (20 mg total) by mouth daily as needed. 30 capsule 5 020 Active Additional Information Patient taking differently:20 mg OralEvery evening, Reported on 01/12/2025 acetaminophen (TYLENOL) 500 MG tablet Take 500 mg by mouth every morning. Active magnesium citrate 125 mg Cap Take 125 mg by mouth every morning. Active calcium carbonate-vitamin D3 1,250 mg (500 mg elemental)-400 units per tablet Take 1 tablet by mouth daily. Active Medication-Free TextIndications:acetami nophen with caffeine 500 mg Take 500 mg by mouth every morning. Taken along with acetaminophen 500 mg in the AM Indications: acetaminophen with caffeine 500 mg Active cholecalciferol (VITAMIN D3) 25 MCG (1,000 unit) tablet Take 1 tablet (1,000 Units total) by mouth daily. 024 Active metFORMIN (GLUCOPHAGE-XR) 500 MG 24 hr tabletIndications:Type 2 diabetes mellitus without complication, without long-term current use of insulin 1000 mg in am and 500 mg in pm 270 tablet 3 024 Active LORazepam (ATIVAN) 1 MG tabletIndications:Anxie ty Take 1 tablet (1 mg total) by mouth daily. 20 tablet 024 Active Additional Information Patient taking differently:1 mg Oral Daily,Only needed for flying., Reported on 11/28/2024 valsartan-hydroCHLOROth iazide (DIOVAN-HCT) 160-25 mg per tabletIndications:Yadi n essential hypertension TAKE 1 TABLET BY MOUTH EVERY DAY 30 tablet 5 025 Active ibuprofen (ADVIL,MOTRIN) 200 MG tablet Take 400 mg by mouth nightly at bedtime. Active atorvastatin (LIPITOR) 10 MG tabletIndications:Pure hypercholesterolemia Take 1 tablet (10 mg total) by mouth daily. 90 tablet 3 Active EPINEPHrine 0.3 mg/0.3 mL auto-injector Inject 0.3 mL (0.3 mg total) into the muscle once as needed for anaphylaxis. 2 each 2 Active blood-glucose meter kitIndications:Type 2 diabetes mellitus without complication, without long-term current use of insulin Use as instructed 1 each Active lancets 28 gauge MiscIndications:Type 2 diabetes mellitus without complication, without long-term current use of insulin 1 each by Miscellaneous route every morning. 100 each 5 Active blood sugar diagnostic Strp stripsIndications:Type 2 diabetes mellitus without complication, without long-term current use of insulin 1 each by Miscellaneous route every morning. 100 strip 5 Active Active Problems Problem Noted Date Diagnosed Date Tick bite 10/22/2020 Assessment & Plan (10/22/2020 6:25 PM EDT): The bite joanne is not superinfected but it does look suspicious for atypical tick bite. We do not know if this is a Lyme carrying deer tick or a wood tick. The patient would feel more comforted if she was covered with antibiotics. We think that is reasonable doxycycline 100 mg p.o. twice daily please stay out of the sun for photosensitivity. Take antibiotic for a full 7 days. HTN (hypertension) 07/09/2017 Impaired fasting glucose 07/09/2017 Migraine without aura and responsive to treatmen t 07/09/2017 Pure hypercholesterolemia 07/09/2017 Type 2 diabetes mellitus wit hout complication, without long-term current use of insulin 07/09/2017 Encounters Date Type Department Care Team Description 03/20/2025 Telephone [facility] Internal Medicine [address] [place] [address] Terrence Almanza MD concerns with vision 03/19/2025 Refill [facility] Internal [facility] [address] [place] [address] Terrence Almanza MD Med Change Request 03/19/2025 Telephone [facility] Internal [facility] [address] [place] [address] Terrence Almanza MD monitor 03/07/2025 Telephone [facility] Internal Medicine [address] [place] [address] Iram Estevez, MARIAJOSE Labs 02/28/2025 Telephone [facility] [address] [place] [address] Terrence Almanza MD Results 02/21/2025 11:22 AM EDT - 02/21/2025 11:59 PM EDT Hospital Encounter [facility] [address] [place] [address] Terrence Almanza MD Discharge Disposition: Home or Self Care 02/05/2025 Telephone [facility] [address] [place] [address] Sawyer Mckeon, MARIAJOSE Results 01/25/2025 Orders Only [facility] Internal Medicine [address] [place] [address] Yael Bee MD 01/23/2025 10:39 AM EDT - 01/23/2025 11:59 PM EDT Hospital Encounter [facility] Laboratory [address] [place] [address] Terrence Almanza MD Discharge Disposition: Home or Self Care 01/23/2025 Refill [facility] Internal Medicine [address] [place] [address] Terrence Almanza MD Medication Refill 01/16/2025 12:30 PM EDT Procedure visit [facility] [address] [place] [address] Ricky Ruiz MD Bilateral carpal tunnel syndrome (Primary Dx) 01/16/2025 Telephone [facility] Internal Medicine [address] [place] [address] Terrence Almanza MD EMG result 01/15/2025 Telephone [facility] Medicine [address] [place] [address] Iram Estevez RN Results 01/14/2025 Telephone [facility] Medicine [address] [place] [address] Terrence Almanza MD 01/14/2025 Telephone [facility] Internal Medicine [address] [place] [address] Terrence Almanza MD 01/12/2025 10:35 AM EDT - 01/12/2025 11:59 PM EDT Hospital Encounter [facility] Laboratory [address] [place] [address] Terrence Almanza MD Discharge Disposition: Home or Self Care 01/12/2025 9:00 AM EDT Office Visit [facility] Internal Medicine [address] [place] [address] Terrence Almanza MD Routine general medical examination at a health care facility (Primary Dx); Pure hypercholesterolemi a; Benign essential hypertension; Screening mammogram for breast cancer; Postmenopausal estrogen deficiency; Type 2 diabetes mellitus without complication, without long-term current use of insulin; Gastroesophageal reflux disease, unspecified whether esophagitis present 12/19/2024 Telephone [facility] Internal Medicine [address] [place] [address] Iram Estevez RN Results from Last 3 Months Immunizations Immunization Administration Dates Next Due COVID-19 (Pre-05/17) Pfizer Vaccine, mRNA, PF 09/24/2020,09/03/2020 INFLUENZA, SPLIT VIRUS, TRIVALENT PF 05/21/2016 INFLUENZA, SPLIT VIRUS, TRIV ALENT W/ PRESERVATIVE IM 05/17/2012 Influenza High-Dose Quadriva lent Preservative Free IM 05/05/2022,05/19/2021 Influenza High-Dose Trivalen t Preservative Free IM 05/01/2024,04/25/2014 Influenza Quadrivalent Adjuv anted Preservative Free IM 05/25/2023,05/01/2020 Influenza Quadrivalent MDCK Preservative Free IM 04/28/2017 Influenza Quadrivalent Prese rvative Free IM 04/26/2019,04/26/2018 Influenza Quadrivalent Prese rvative Free Intradermal 04/13/2011 Influenza Quadrivalent w/ Pr eservative IM 05/13/2015 Influenza trivalent preserva tive free intradermal 04/07/2013 Influenza, Unspecified Formulation 04/29,06/03/2010,12/06/2009,05/21 Pneumococcal conjugate PCV13 05/26/2019 Pneumococcal polysaccharide PPSV23 05/06/2020 Td, unspecified formulation 01/23/2003 Tdap 06/29/2023,12/24/2011 Zoster live 06/06/2014 Family History Medical History Relation Comments Cancer Father Alzheimer's disease Mother Relation Status Comments Father (Age 85) copd lung canc er Mother Alive Social History Tobacco Use Types Packs/Day Years Used Date Smoking Tobacco: Former Cigarettes 0 5 1 978 - 1982 Smokeless Tobacco: Never Tobacco Cessation:Counseling Given: Not Answered Comments:social smoker while drinking Alcohol Use Standard [...] your housing situation today? I have stefan irene 01/05/2025 How many times have you move [...] Orientation Straight 10/22/2020 1: 39 PM EDT Last Filed Vital Signs Vital Sign Reading Time Taken Comments Blood Pressure 116/70 01/12/2025 9:06 AM EDT Pulse 98 01/12/2025 9:06 AM EDT Temperature 36.7 C (98 F) 01/12/2025 9:06 AM EDT Respiratory Rate 16 01/12/2025 9:06 AM EDT Oxygen Saturation 97% 01/12/2025 9:06 AM EDT Inhaled Oxygen Concentration - - Weight 79.7 kg (175 lb 9.6 oz) 01/12/2025 9:06 A M EDT Height 157.6 cm (5' 2.05 ) 01/12/2025 9:06 AM ED T Body Mass Index 32.07 01/12/2025 9:06 AM EDT Plan of Treatment Upcoming Encounters Date Type Department Care Team (Late st Contact Info) Description 03/20/2025 4:45 PM EDT Office Visit [facility] Internal Medicine [address] [place] [address] Bairon Nails MD [address] [place] [id number] 04/30/2025 11:30 AM EDT Office Visit [facility] Internal Medicine [address] [place] [address] Terrence Almanza MD [address] [place] [address] 01/04/2026 8:30 AM EDT Office Visit [facility] Internal Medicine [address], [place] [phone] Terrence Almanza MD [address] [place] [address] Health Maintenance Due Date Last Done Comments COLOGUARD 1999 FIT TEST 1999 FOBT 1999 SIGMOIDOSCOPY 1999 VIRTUAL COLONOSCOPY 1999 ZOSTER VACCINES (2 of 3) 08/01/2014 06/06/2014 COVID-19 VACCINE ( season) 2024 05/20/2023, 05/10/2022, 12/08/2021, Additional history exists INFLUENZA VACCINE (#1) 2025 , 05/25/2023, 05/05/2022, Additional history exists HEMOGLOBIN A1C 05/30/2025 11/27/2024, 06/25, 04/12/2024, Additional history exists DIABETIC EYE EXAM 06/05/2025 06/05/2024, , 01/29/2023, Additional history exists BLOOD PRESSURE 07/14/2025 01/12/2025 DEPRESSION SCREENING 01/05/2026 01/05/2025, 11/28/19 25 CREATININE LEVEL 01/23/2026 01/23/2025, 11/2024, 07/13/2024, Additional history exists POTASSIUM LEVEL 01/23/2026 01/23/2025, 05/0 11/2024, 07/13/2024, Additional history exists MAMMOGRAM 01/12/2027 01/12/2025, 12/24, 01/14/2023, Additional history exists RSV VACCINE (1 - 1-dose 75+ series) 2029 Adult Td,Tdap Booster 06/29/2033 06/29/2023 , 12/24/2011, 01/23/2003 COLONOSCOPY 01/24/2035 01/24/2025, 07/0 08/2024, 01/09/2015 COLORECTAL CANCER SCREENING 01/24/2035 HEPATITIS C SCREENING Completed 05/06/2020 , 05/06/2020, 08/25/2016 PNEUMOCOCCAL VACCINES (50+ years) Completed 05/06/2020, 05/26/2019 OSTEOPOROSIS SCREENING INITIAL (ONE-TIME) Completed 01/12/2025, 01/28/2023, 01/14/2023, Additional history exists SMOKING STATUS SCREENING (Once After 26 Yrs) Completed 01/12/2025 HEPATITIS A VACCINES Aged Out No long er eligible based on patient's age to complete this topic HIB VACCINES Aged Out No longer eligi ble based on patient's age to complete this topic MENINGOCOCCAL VACCINES (ACWY) Aged Out No longer eligible based on patient's age to complete this topic MENINGOCOCCAL VACCINES (B) Aged Out N o longer eligible based on patient's age to complete this topic Medical Devices Not on file Procedures Procedure Name Priority Date/Time Associated Diagnosis Comments Antinuclear antibody, titer and pattern Routine 02/21/2025 12:19 PM EDT ANTINUCLEAR ANTIBODY (CORTEZ) Routine 02/21/2025 12:19 PM EDT Positive CORTEZ (antinuclear antibody) DOUBLE STRANDED DNA ANTIBODIES Routine 02/21/2025 12:19 PM EDT Positive CORTEZ (antinuclear antibody) SS-A/SS-B ANTIBODIES Routine 02/21/2025 12:19 PM EDT Positive CORTEZ (antinuclear antibody) Extractable nuclear antigen (MARIO) antibodies Routine 02/21/2025 12:19 PM EDT Positive CORTEZ (antinuclear antibody) SEDIMENTATION RATE (ESR) Routine 02/21/2025 12:19 PM EDT Positive CORTEZ (antinuclear antibody) C-REACTIVE PROTEIN Routine 02/21/2025 12 :19 PM EDT Positive CORTEZ (antinuclear antibody) U1RNP AND CASTANEDA ANTIBODIES Routine 02/21/2025 12:19 PM EDT Positive CORTEZ (antinuclear antibody) HM COLONOSCOPY FOR RESULT ENTRY ONLY Routine 01/24/2025 1:49 PM EDT HM COLONOSCOPY FOR RESULT ENTRY ONLY Routine 01/24/2025 12:19 PM EDT Antinuclear antibody, titer and pattern Routine 01/23/2025 10:39 AM EDT CBC AND DIFFERENTIAL Routine 01/23/2025 10:39 AM EDT Myalgia Primary osteoarthritis involving multiple joints Elevated sed rate COMPREHENSIVE METABOLIC PANEL Routine 01/23/2025 10:39 AM EDT Myalgia Primary osteoarthritis involving multiple joints Elevated sed rate SEDIMENTATION RATE (ESR) Routine 01/23/2025 10:39 AM EDT Primary osteoarthritis involving multiple joints Elevated sed rate C-REACTIVE PROTEIN Routine 01/23/2025 10 :39 AM EDT Primary osteoarthritis involving multiple joints Elevated sed rate ANTINUCLEAR ANTIBODY (CORTEZ) Routine 01/23/2025 10:39 AM EDT Primary osteoarthritis involving multiple joints Elevated sed rate RHEUMATOID FACTOR Routine 01/23/2025 10: 39 AM EDT Primary osteoarthritis involving multiple joints Elevated sed rate FERRITIN Routine 01/23/2025 10:39 AM EDT Numbness and tingling in both hands Primary osteoarthritis involving multiple joints Elevated sed rate IRON AND IRON BINDING CAPACITY Routine 01/23/2025 10:39 AM EDT Numbness and tingling in both hands Primary osteoarthritis involving multiple joints Elevated sed rate VITAMIN B12 Routine 01/23/2025 10:39 AM EDT Numbness and tingling in both hands Elevated sed rate URINALYSIS W/REFLEX URINE CULTURE Routine 01/12/2025 10:54 AM EDT Nocturia SEDIMENTATION RATE (ESR) Routine 01/12/2025 10:35 AM EDT Myalgia C-REACTIVE PROTEIN Routine 01/12/2025 10 :35 AM EDT Myalgia TSH WITH REFLEX Routine 01/12/2025 10:35 AM EDT Numbness and tingling in both hands Essential hypertension MAGNESIUM Routine 01/12/2025 10:35 AM EDT Myalgia Essential hypertension CPK (CREATINE KINASE) Routine 01/12/2025 10:35 AM EDT Myalgia LYME SCREEN WITH REFLEX TO WESTERN BLOT, BLOOD Routine 01/12/2025 10:35 AM EDT Myalgia BD DXA SCREENING Routine 01/12/2025 10:0 0 AM EDT Postmenopausal estrogen deficiency BI MAMMOGRAM SCREENING (BILATERAL) Routine 01/12/2025 10:00 AM EDT Screening mammogram for breast cancer HEMOGLOBIN A1C Routine 11/27/2024 9:11 AM EDT Type 2 diabetes mellitus without complication, without long-term current use of insulin HM DIABETES EYE EXAM FOR RESULT ENTRY ONLY Routine 06/05/2024 HEPATITIS C ANTIBODY, QUALITATIVE Routine 05/06/2020 12:03 PM EDT Need for hepatitis C screening test from Last 3 Months or Most Recently Relevant to Health Maintenance Results * Antinuclear antibody, titer and pattern (02/21/2025 12:19 PM EDT) Only the most recent of2 resultswithin the time period is included. CORTEZ TITER 1:80 Speckled [facility] Comment:1:160 Homogeneous 02/21/2025 12:1 9 PM EDT 02/21/2025 12:24 PM EDT us Terrence Almanza MD LAB BLOOD ORDERABLES Final Re sult [facility] [address] [place] [address] * Extractable nuclear antigen (MARIO) antibodies (02/21/2025 12:19 PM EDT) SS-A/RO IGG 0.2 <1.0 (Negative) U [facility] MED/PATH [address] SS-B/LA IGG <0.2 <1.0 (Negative) U [facility] MED/PATH [address] SM AB, IGG, S <0.2 <1.0 (Negative) U [facility] MED/PATH [address] DIRECTOR [employer]ES AB, IGG <0.2 <1.0 (Negative) U [facility] MED/PATH [address] SCL 70 AB, IGG <0.2 <1.0 (Negative) U [facility] MED/PATH [address] CLAUDIO 1 IGG <0.2 <1.0 (Negative) U [facility] MED/PATH [address] Blood 02/21/2025 12:1 9 PM EDT 02/21/2025 12:25 PM EDT Terrence Almanza MD LAB BLOOD ORDERABLES Final Re sult Performing Organization Address [facility] Co de Phone Number [facility] MED/PATH [address] [place] [address] * SS-A/SS-B antibodies (02/21/2025 12:19 PM EDT) ANTI-RO ANTIBODY 1.57 0.00 - 19.99 OD UNIT [facility] RO INTERPRETATION Negative Negative [facility] ANTI-LA ANTIBODY 1.45 0.00 - 19.99 OD UNIT [facility] LA INTERPRETATION Negative Negative [facility] Blood 02/21/2025 12:1 9 PM EDT 02/21/2025 12:25 PM EDT Terrence Almanza MD LAB BLOOD ORDERABLES Final Re sult [facility] [address] [place] [address] * U1RNP and Castaneda antibodies (02/21/2025 12:19 PM EDT) ANTI-SM ANTIBODY 3.47 0.00 - 19.99 OD UNIT [facility] SM INTERPRETATION Negative Negative [facility] ANTI-[employer]OR [employer]ES ANTIBODY 2.49 0.00 - 19.99 OD UNIT [facility] [employer] INTERPRETATION Negative Negative [facility] Blood 02/21/2025 12:1 9 PM EDT 02/21/2025 12:25 PM EDT Terrence Almanza MD LAB BLOOD ORDERABLES Final Re sult Performing Organization Address [facility] Co de Phone Number [address] [address] * Double stranded DNA antibodies (02/21/2025 12:19 PM EDT) ANTI DSDNA ANTIBODY Negative at 1:10 [facility] Comment: Performing Pathologist, August Guerra M.D., Ph.D. [id number] Normal: Negative at 1:10 To interpret a negative test for anti-[place] or double stranded DNA antibodies in a patient suspected of having systemic lupus erythematosus, the following limitation should be noted. Anti-double stranded DNA antibodies are usually detected in SLE patients with active disease, especially in those with active renal disease. Anti-DNA antibodies are usually not detected in SLE patients with spontaneous or drug-induced remissions. Blood 02/21/2025 12:1 9 PM EDT 02/21/2025 12:25 PM EDT Terrence Almanza MD LAB BLOOD ORDERABLES Final Re sult Performing Organization Address [facility] Co de Phone Number [address] [address] * Sedimentation rate (ESR) (02/21/2025 12:19 PM EDT) Only the most recent of3 resultswithin the time period is included. ESR 26 0 - 30 mm/h [facility] Blood 02/21/2025 12:1 9 PM EDT 02/21/2025 12:24 PM EDT Terrence Almanza MD LAB BLOOD ORDERABLES Final Re sult Performing Organization Address [facility] Co de Phone Number [address] [address] * (ABNORMAL) C-Reactive Protein (02/21/2025 12:19 PM EDT) Only the most recent of3 resultswithin the time period is included. C REACTIVE PROTEIN 4.8(H) 0.0 - 4.0 mg/L [facility] Blood 02/21/2025 12:1 9 PM EDT 02/21/2025 12:24 PM EDT Terrence Almanza MD LAB BLOOD ORDERABLES Final Re sult Performing Organization Address [facility] Co de Phone Number [address] [address] * (ABNORMAL) Antinuclear antibody (CORTEZ) (02/21/2025 12:19 PM EDT) Only the most recent of2 resultswithin the time period is included. [facility] CORTEZ SCREEN ON HEP 2 Positive(A ) Negative [facility] Comment:An CORTEZ Titer has bee n reflexed. The results will follow. Blood 02/21/2025 12:1 9 PM EDT 02/21/2025 12:24 PM EDT Terrence Almanza MD LAB BLOOD ORDERABLES Final Re sult Performing Organization Address [facility] de Phone Number [address] [address] * HM COLONOSCOPY FOR RESULT ENTRY ONLY (01/24/2025 1:49 PM EDT) Historical Provider HEALTH MAINTENANCE Final Result * HM COLONOSCOPY FOR RESULT ENTRY ONLY (01/24/2025 12:19 PM EDT) Historical Provider HEALTH MAINTENANCE Final Result * (ABNORMAL) Comprehensive metabolic panel (01/23/2025 10:39 AM EDT) Pathologist [facility] SODIUM 134 133 - 146 mmol/L [facility] POTASSIUM 4.3 3.3 - 5.1 mmol/L [facility] CHLORIDE 98 96 - 108 mmol/L [facility] CO2 26 21 - 35 mmol/L [facility] BUN 25(H) 6 - 19 mg/dL [facility] CREATININE 0.80 0.5 - 1.5 mg/dL [facility] GLUCOSE 127(H) 70 - 99 mg/dL [facility] ALBUMIN 4.2 3.9 - 4.8 g/dL [facility] TOTAL PROTEIN 7.0 6.5 - 8.0 g/dL [facility] CALCIUM 10.3 8.4 - 10.3 mg/dL [facility] ALKALINE PHOSPHATASE 70 39 - 117 U/L [facility] TOTAL BILIRUBIN 0.3 0.0 - 1.2 mg/dL [facility] AST 22 0 - 37 U/L [facility] ALT 16 0 - 40 U/L [facility] GLOBULIN 2.8 1 - 4.8 g/dL [facility] EGFR 79 >59 mL/min/1.7 3m2 [facility] Comment:Estimated glomerular filtration rate calculated using the CKD-EPI refit equation. ANION GAP 14 10 - 20 mmol/L [facility] Blood 01/23/2025 10:3 9 AM EDT 01/23/2025 10:43 AM EDT us Terrence Almanza MD LAB BLOOD ORDERABLES Final Re sult Performing Organization Address City/[facility]/ZIP Co de Phone Number [address] [address] * Iron and iron binding capacity (01/23/2025 10:39 AM EDT) IRON 45 30 - 160 ug/dL [facility] IRON BINDING CAPACITY 291 228 - 428 ug/dL [facility] TRANSFERRIN SATURAT. 15 15 - 50 % [facility] Blood 01/23/2025 10:3 9 AM EDT 01/23/2025 10:43 AM EDT us Terrence Almanza MD LAB BLOOD ORDERABLES Final Re sult Performing Organization Address City/[facility]/ZIP Co de Phone Number [address] [address] * (ABNORMAL) CBC and differential (01/23/2025 10:39 AM EDT) WBC 7.97 4.00 - 11.00 K/uL [facility] RBC 4.32 4.00 - 5.20 M/uL [facility] HGB 12.4 12.0 - 16.0 g/dL [facility] HCT 39.4 36.0 - 46.0 % [facility] PLT 362 150 - 450 K/uL [facility] MCV 91.2 80.0 - 100.0 fL [facility] MCH 28.7 27.0 - 31.0 pg [facility] MCHC 31.5(L) 32.0 - 36.0 g/dL [facility] RDW 14.2 11.5 - 14.5 % [facility] MPV 9.4 8.4 - 12.0 fL [facility] NRBC 0.00 0.00 /100 WBCs [facility] ABSOLUTE NRBC 0.00 0.00 K/uL [facility] DIFF METHOD Auto [facility] NEUTS 65.1 48.0 - 76.0 % [facility] LYMPHS 26.6 18.0 - 41.0 % [facility] MONOS 4.9 4.0 - 11.0 % [facility] EOS 2.5 0.0 - 5.0 % [facility] BASOS 0.5 0.0 - 1.5 % [facility] Granulocytes, immature (%) 0.4 0.0 - 0.9 % [facility] ABSOLUTE NEUTS 5.19 1.92 - 7.60 K/uL [facility] ABSOLUTE LYMPHS 2.12 0.72 - 4.10 K/uL [facility] ABSOLUTE MONOS 0.39 0.16 - 1.10 K/uL [facility] ABSOLUTE EOS 0.20 0.00 - 0.50 K/uL [facility] ABSOLUTE BASOS 0.04 0.00 - 0.15 K/uL [facility] Granulocytes, immature 0.03 0.00 - 0.09 K/uL [facility] Blood 01/23/2025 10:3 9 AM EDT 01/23/2025 10:43 AM EDT us Terrence J Alpine MD LAB BLOOD ORDERABLES Final Re sult Performing Organization Address [facility]/ZIP Co de Phone Number [address] [address] * Rheumatoid factor (01/23/2025 10:39 AM EDT) RHEUMATOID FACTOR <10.0 0.0 - 14.0 IU/ml [facility] Blood 01/23/2025 10:3 9 AM EDT 01/23/2025 10:43 AM EDT us Terrence Almanza MD LAB BLOOD ORDERABLES Final Re sult Performing Organization Address [facility]/ZIP Co de Phone Number [address] [address] * Ferritin (01/23/2025 10:39 AM EDT) FERRITIN 145 13 - 150 ug/L [facility] Blood 01/23/2025 10:3 9 AM EDT 01/23/2025 10:43 AM EDT us Terrence Almanza MD LAB BLOOD ORDERABLES Final Re sult Performing Organization Address [facility]/ZIP Co de Phone Number [address] [address] * Vitamin B12 (01/23/2025 10:39 AM EDT) VITAMIN B12 677 232 - 1,245 pg/mL [facility] Blood 01/23/2025 10:3 9 AM EDT 01/23/2025 10:43 AM EDT us Terrence Almanza MD LAB BLOOD ORDERABLES Final Re sult Performing Organization Address [facility]/ZIP Co de Phone Number [address] [address] * (ABNORMAL) Urinalysis w/reflex Urine Culture (01/12/2025 10:54 AM EDT) COLOR STRAW(A) Yellow [facility] CLARITY Clear [facility] GLUCOSE Negative Negative [facility] BILI Negative Negative [facility] KETONES Negative Negative [facility] SPECIFIC GRAVITY 1.010 1.005 - 1.030 [facility] BLOOD Negative Negative [facility] PH 7.0 5.0 - 8.0 [facility] Protein-UA Negative Negative [facility] NITRITE Negative Negative [facility] Leukocyte esterase, ur Negative Negative [facility] Urine (Urine) 01/12/2025 10: 54 AM EDT 01/12/2025 10:55 AM EDT us Terrence Almanza MD URINE ORDERABLES Final Result Performing Organization Address [facility] de Phone Number [address] [address] * Lyme Screen with Reflex to Immunoblot, Blood (01/12/2025 10:35 AM EDT) Lyme AB IgG Negative Negative [facility] Lyme AB IgM Negative Negative [facility] Blood 01/12/2025 10:3 5 AM EDT 01/12/2025 10:39 AM EDT us Terrence Almanza MD LAB BLOOD ORDERABLES Final Re sult Performing Organization Address [facility] de Phone Number [address] [address] * TSH with reflex (01/12/2025 10:35 AM EDT) TSH 1.34 0.27 - 4.20 uIU/mL [facility] Blood 01/12/2025 10:3 5 AM EDT 01/12/2025 10:39 AM EDT us Terrence Almanza MD LAB BLOOD ORDERABLES Final Re sult Performing Organization Address [facility]/ZIP Co de Phone Number [address] [address] * Magnesium (01/12/2025 10:35 AM EDT) MAGNESIUM 1.9 1.6 - 2.6 mg/dL [facility] Blood 01/12/2025 10:3 5 AM EDT 01/12/2025 10:39 AM EDT us Terrence Almanza MD LAB BLOOD ORDERABLES Final Re sult Performing Organization Address City/[facility]/ZIP Co de Phone Number [address] [address] * CPK (creatine kinase) (01/12/2025 10:35 AM EDT) CREATINE KINASE 26 21 - 215 U/L [facility] Blood 01/12/2025 10:3 5 AM EDT 01/12/2025 10:39 AM EDT Terrence Almanza MD LAB BLOOD ORDERABLES Final Re sult Performing Organization Address [facility]/ZIP Co de Phone Number [address] [address] * (ABNORMAL) Hemoglobin A1c (11/27/2024 9:11 AM EDT) HEMOGLOBIN A1C 6.5(H) 4.3 - 5.8 % [facility] Blood 11/27/2024 9:11 AM EDT 11/27/2024 9:13 AM EDT Terrence Almanza MD LAB BLOOD ORDERABLES Final Re sult Performing Organization Address [facility] Co de Phone Number [address] [address] * HM DIABETES EYE EXAM FOR RESULT ENTRY ONLY (06/05/2024) HM EYE EXAM no retinopathy us Yael Bee MD HEALTH MAINTENANCE Final Result * DXA Screening (01/28/2023 2:11 PM EDT) Anatomical Region Laterality Modality Bone Density Bone Density Terrence Almanza MD IMG BD BONE DENSITY DEXA [facility] Result * HM MAMMOGRAPHY FOR RESULT ENTRY ONLY (01/14/2023) Terrence Almanza MD HEALTH MAINTENANCE Edited Res ult - Final * Hepatitis C antibody, qualitative (05/06/2020 12:03 PM EDT) HCV NON-REACTIV E NON-REACTI VE [facility] Blood 05/06/2020 12:0 3 PM EDT 05/06/2020 12:11 PM EDT Result [facility] Terrence Almanza MD LAB BLOOD ORDERABLES Final Re sult [address] [address] from Last 3 Months or Most Recently Relevant to Health Maintenance Insurance [place] PART A & [place] [id number] [employer] SUPPLEMENT MEDICARE PART A & B [employer] SU[employer]MENT MEDICARE PART A & B [employer] MEDEX SUPPLEMENT MEDICARE PART A & B [facility] MEDEX SUPPLEMENT MEDICARE PART A & B [employer] MED[employer] SUPPLEMENT MEDICARE PART A & B [employer] MED[employer] SUPPLEMENT MEDICARE PART A & B [employer] MED[employer] SUPPLEMENT MEDICARE PART A & B [employer] MEDEX SUPPLEMENT MEDICARE PART A & B [employer] MEDEX SUPPLEMENT Care Teams Clinical Appeals Auditor Relationship Specialty Start Date End Date Terrence Almanza MD [address] [place] [address] [email or web address] PCP - General Internal Medicine 12/12/18 Terrence Almanza MD [address] [place] [address] [email or web address] Historical LMR Provider 05/16/17 Archie Dent MD [address] [place] [address] [place] [address] Ophthalmology 08/08/19 Terrence Almanza MD [address] [place] [address] (work) [email or web address] Insurance Assigned Provider 10/30/23 Additional Source Comments The information contained in this document represents components of the legal health record. It is not the complete legal health record.[facility]
== END 2025-03-20 16:16 | disposition home or self-care (01) ==
PROVIDERS: PCP Internal Medicine; Visit Provider Physician Assistant
DX: Z13.9 Encounter for screening, unspecified (principal); R00.0 Tachycardia, unspecified

== ENCOUNTER → 2025-03-20 14:29 | Outpatient (BNVA) | payer MEDICARE, SELFPAY | PROVIDERS: PCP Internal Medicine; Visit Provider Physician Assistant | DX: R00.0 Tachycardia, unspecified (principal); R73.03 Prediabetes | CPT/HCPCS: 82948; 99202 ==